=== PATIENT | female | born 1940 ===

== ENCOUNTER 2023-05-28 11:19 | Outpatient (RCR) | payer MEDICARE, SELFPAY | END 2023-06-14 23:59 | disposition home or self-care (01) | LOC: CR 11:19 | PROVIDERS: Visit Provider Internal Medicine Cardiovascular Disease | DX: I25.10 Atherosclerotic heart disease of native coronary artery without angina pectoris (principal); Z95.2 Presence of prosthetic heart valve; Z51.89 Encounter for other specified aftercare | CPT/HCPCS: S9472 ==